=== PATIENT | male | born 1990 | race Caucasian/White ===

== ENCOUNTER 2020-03-04 21:19 | Emergency (ER) | payer MEDICAID, SELFPAY ==
--- NOTE | ~2020-03-04 | XR_ITS ---
EXAMINATION: XR knee LT 3V DATE: 03/04/2020 22:29 INDICATION: Glass injury to the left knee TECHNIQUE: Anteroposterior, oblique and crosstable lateral views of the left knee were obtained COMPARISON: None. FINDINGS: Alignment is normal. No fracture. No joint effusion/layering lipohemarthrosis. Prepatellar soft tiss ue tissue swelling surrounding a 3 mm cubical glass fragment in the subcutaneous tissues. IMPRESSION: 1. 3 mm foreign body consistent with glass fragment in the prepatellar subcutaneous tissues. 2. No osseous abnormality or left knee joint effusion. Reviewed, dictated and finalized at location A. IMPRESSION: 1. 3 mm foreign body consistent with glass fragment in the prepatellar subcutan eous tissues. 2. No osseous abnormality or left knee joint effusion.
[2020-03-04 21:25] VITALS: BP 143/95; PULSE 114; RESP 14; TEMP 36.5; O2SAT 95
--- NOTE | 2020-03-04 22:03 | PC.NURSE ---
pt arrives to ER s/p fall. pt states he was moving furniture when he fell through storm door. pt was seen at [facility]. pt has stitches to the R wrist and R pointer finger. bleeding controlled, dressing in place. wounds cleaned and dressed. Laceration noted to L knee and L ankle. +PMS. wounds cleaned and dressing applied, bleeding controlled. +ETOH. pt denies hitting head. denies -LOC, pt answering questions appropriately.
--- NOTE | 2020-03-04 22:11 | ED.WOUNDLAC ---
HPI - Wound/Laceration General Chief Complaint: Wound/Laceration Stated Complaint: cut by glass Time Seen by Provider: 03/04/20 21:27 Source: patient and family Mode of arrival: ambulatory Limitations: no limitations History of Present Illness HPI narrative: Patient accidentally walks through a glass door, had laceration of the hands, left knee and left lower leg. Patient went to [facility], the hand laceration has been sutured, somehow patient did not like the hospital over there and he came to us with possible glass in the wound of the left knee. Patient already had x-ray done over there. Patient reported that he is up-to-date for tetanus shot less than 5 years. Related Data Allergies Allergy/AdvReac Type Severity Reaction Status Date / Time No Known Allergies Allergy Unverified 01/26/19 07:57 Review of Systems Review of Systems: Narrative: CONSTITUTIONAL: Denies fever, chills, or sweats. EYES: Denies visual changes, redness, or discharge. ENT: Denies rhinorrhea, congestion, sore throat, or otalgia. CARDIOVASCULAR: Denies chest pain, palpitations, or edema. RESPIRATORY: Denies cough or dyspnea. GASTROINTESTINAL: Denies abdominal pain, nausea, vomiting, or diarrhea. GENITOURINARY: Denies dysuria or hematuria. SKIN: Denies rash or itching. MUSCULOSKELETAL: Denies back pain, joint pain, or myalgia. NEUROLOGIC: Denies headache, numbness, or weakness. PSYCHIATRIC: Denies anxiety or depression. [facility] Social History Social History (Updated 03/04/20 @ 22:14 by Radha Watson MD) Alcohol intake: unknown Substance use: unknown Exam Narrative: Exam Narrative: General appearance: Well-developed, well-nourished Skin: Normal color. Patient had 3 stitches on the palmar side of the right hand and palmar side of the left hand. Also have multiple cuts at the left knee anteriorly between 3 mm up to 1 cm. Also another 4 cm and a 5 cm laceration at the left lower leg distally. Head: Normocephalic, nontraumatic Eyes: Clear conjunctiva ENT: Oropharynx normal, ears normal, nose normal Neck: Supple, nontender Chest and respiratory: Airway patent, no respiratory distress, no accessory muscle use Heart: Regular rate/rhythm Abdomen: Soft, nontender, no organomegaly, quiet bowel sounds Vascular: Normal peripheral pulses, normal capillary refill. Musculoskeletal: Normal range of motion, nontender back Neurologic: Alert and oriented ?3, TE[employer]COMM[employer]ICATION [employer] is normal as tested, no gross motor deficit Course Course Emergency Course: Stable, improving Consultations Consultation #1: Dr. Jara He will call the patient in the morning after he look at his x-ray. Date: 03/04/20 Time: 23:52 Vital Signs Vital signs: Vital Signs Temperature 36.5 C 03/04/20 21:25 Pulse Rate 114 H 03/04/20 21:25 Respiratory Rate 14 03/04/20 21:25 Blood Pressure 143/95 H 03/04/20 21:25 Pulse Oximetry 95 03/04/20 21:25 Temperature 36.5 C 03/04/20 21:25 Pulse Rate 114 H 03/04/20 21:25 Respiratory Rate 14 03/04/20 21:25 Blood Pressure 143/95 H 03/04/20 21:25 Pulse Oximetry 95 03/04/20 21:25 Procedures Laceration Laceration 1: Date: 03/04/20 Time: 23:32 Site: lower extremity (Left knee anteriorly showed multiple small cuts between 3 mm and 1/2 cm like puncture wounds) Side (If applicable): left Description: clean Local Anesthetic: lidocaine 1% and with epi Amount of anesthesia used (mL): 5 Pre-repair: wound explored and irrigated ====== Skin Level ====== Size (cm): 6-0 and other (Ethilon) Number of sutures: 3 Technique: simple, interrupted and other (There is a small foreign body und
--- NOTE | 2020-03-04 23:46 | PC.NURSE ---
wounds cleansed, antibiotic ointment applied, and dressing applied.
[2020-03-05] MEDS: CEPHALEXIN 500 MG CAPSULE PO (00:02)
[2020-03-05 00:05] VITALS: PULSE 91; RESP 16; O2SAT 100
== END 2020-03-05 00:06 | disposition home or self-care (01) ==
PROVIDERS: Emergency Provider Emergency Medicine
DX: S81.012A Laceration without foreign body, left knee, initial encounter (principal); S81.812A Laceration without foreign body, left lower leg, initial encounter; W25.XXXA Contact with sharp glass, initial encounter
CPT/HCPCS: 12004; 73562; 99283; A9270